=== PATIENT | female | born 1995 | race Caucasian/White ===

== ENCOUNTER 2016-03-23 00:43 | Inpatient (IN) | payer MEDICAID, OTHER, SELFPAY ==
[~2016-03-23] VITALS: Ht 162.6 cm; Wt 98.3 kg
[2016-03-23 01:31] LABS: MEAN CORPUSCULAR HEMOGLOBIN 28.3 pg (27.0-33.0); MEAN CORPUSCULAR HGB CONC 32.9 g/dl (32.0-36.5); MEAN CORPUSCULAR VOLUME 86.1 fl (80.0-96.0); RED CELL DISTRIBUTION WIDTH 13.4 % (11.5-14.5); WHITE BLOOD COUNT 12.9 K/mm3 (4.0-10.0)
[2016-03-23 01:41] LABS: AMPHETAMINES LEVEL URINE NEGATIVE (NEGATIVE); BENZODIAZEPINES URINE NEGATIVE (NEGATIVE); COCAINE METABOLITE URINE NEGATIVE (NEGATIVE); CONTROL LINE INT CTR LINE PRESENT; METHADONE URINE NEGATIVE (NEGATIVE); OPIATES URINE NEGATIVE (NEGATIVE); TRICYCLIC ANTIDEPRESS URINE NEGATIVE (NEGATIVE)
[2016-03-23 01:53] LABS: CONTROL LINE HCG INT CTR LINE PRESENT
[2016-03-23 02:04] LABS: ALBUMIN 3.3 GM/DL (3.2-5.2); ALBUMIN/GLOBULIN RATIO 0.97 (1.00-1.93); ALKALINE PHOSPHATASE 87 U/L (45-117); ALT/SGPT 16 U/L (12-78); ANION GAP 9 MEQ/L (8-16); AST/SGOT 12 U/L (15-37); BILIRUBIN,DIRECT 0.1 MG/DL (0.0-0.2); BILIRUBIN,TOTAL 0.3 MG/DL (0.2-1.0); BLOOD UREA NITROGEN 8 MG/DL (7-18); CALCIUM LEVEL 8.2 MG/DL (8.5-10.1); CARBON DIOXIDE LEVEL 24 MEQ/L (21-32); CHLORIDE LEVEL 110 MEQ/L (98-107); CREATININE FOR GFR 0.57 MG/DL (0.55-1.02); GLOMERULAR FILTRATION RATE > 60.0 (>60); GLUCOSE, FASTING 95 MG/DL (70-105); POTASSIUM SERUM 3.6 MEQ/L (3.5-5.1); SODIUM LEVEL 143 MEQ/L (136-145); TOTAL PROTEIN 6.7 GM/DL (6.4-8.2)
[2016-03-23] MEDS ORDERED: MAALOX 30 ML SUSP *UDC PO PRN (02:15)
[2016-03-23] MEDS ORDERED: traZODone 50 MG TAB PO PRN (02:15)
[2016-03-23] MEDS ORDERED: MOM 30ML SUSPENSION UDC PO PRN (02:15)
--- NOTE | 2016-03-23 02:44 | EDDOCDS ---
Physician Documentation [facility] Name: Paula Obando Age: 20 yrs Sex: Female : 1995 Arrival Date: 03/23/2016 Time: 00:43 Bed OBSERVATION Private MD: Disposition: 03/23/16 02:30 Hospitalization ordered by Alfredo Champion for Inpatient Admission. Preliminary diagnosis is Major depressive disorder, recurrent. - Bed requested for Admit. - Status is Inpatient Admission. slm - Condition is Stable. - Problem is an ongoing problem. - Symptoms have improved. Historical: - Allergies: No known drug Allergies; - Home Meds: 1. albuterol sulfate 90 mcg/actuation Inhl HFAA 2 puffs every 4-6 hours 2. omeprazole 20 mg Oral cpDR 1 cap once daily 3. trazodone Oral Unknown once daily 4. Advair Diskus 250-50 mcg/dose Inhl dsdv 1 puff 2 times per day - PMHx: GERD; Asthma; - PSHx: left eye surgery; - Social history: Smoking status: Patient uses tobacco products, heavy tobacco smoker. Patient uses street drugs, marijuana, No barriers to communication noted, The patient speaks fluent Uzbek, Speaks appropriately for age. - Family history: Not pertinent. - : The pt / caregiver states he / she is not on anticoagulants. Home medication list is obtained from the patient. - Exposure Risk Screening:: None identified. 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 4 in. (162.56 cm); Pain 9/10; 02:35 BP 132 / 89; Pulse 74; Resp 16; Temp 98.0(T); Pulse Ox 98% on R/A; slm 00:46 Body Mass Index 36.90 (97.52 kg, 162.56 cm) mas MDM: 00:50 [facility] Legal paperwork was scanned into [email or web address] and attached to record. cl 01:13 Consult PFS/PSA/Rapid Transit Operator ordered. cs11 01:13 Consult PFS/PSA/Rapid Transit Operator: Patient's case requires discussion with on-call 11 Psychiatrist ordered. 01:13 PSA/PFS to call Nursing Route Salesperson, to enter patient data on [place] Safe Act if patient cs11 involuntarily admitted or transferred for SI or HI ordered. 01:13 Confirm accurate psychiatric medication list and times of last dosage ordered. cs11 01:13 Detain Pt Until Medically/PFS Cleared ordered. cs11 01:15 Financial registration complete. hs2 01:15 Acetaminophen Level Ordered. EDMS 01:15 Basic Metabolic Profile Ordered. EDMS 01:15 Complete Blood Count Ordered. EDMS 01:15 Drug Eval Toxicology ED Only Ordered. EDMS 01:15 Ethyl Alcohol (ethanol) Ordered. EDMS 01:15 HCG,Serum Qualitative Ordered. EDMS 01:15 Liver Profile Ordered. EDMS 01:15 Salicylate Level Ordered. EDMS 01:15 Thyroid Stimulating Hormone Ordered. EDMS 01:18 [facility] Payment Agreement was scanned into [email or web address] and attached to record. hs2 02:01 Consult PFS/PSA/Rapid Transit Operator complete. cl 02:01 Consult PFS/PSA/Rapid Transit Operator: Patient's case requires discussion with on-call cl Psychiatrist complete. 02:01 PSA/PFS to call Nursing Route Salesperson, to enter patient data [place] Safe [place] if patient cl involuntarily admitted or transferred for SI or HI complete. 02:18 Admit to IMHU: ordered. EDMS 02:19 REGULAR DIET ordered. EDMS 02:29 [facility] Legal paperwork was scanned into [email or web address] and attached to record. cl 02:30 Acetaminophen Level Reviewed. cs11 02:30 Basic Metabolic Profile Reviewed. cs11 02:30 Complete Blood Count Reviewed. cs11 02:30 Liver Profile Reviewed. cs11 02:30 Salicylate Level Reviewed. cs11 02:30 Drug Eval Toxicology ED Only Reviewed. cs11 02:30 Ethyl Alcohol (ethanol) Reviewed. cs11 02:30 HCG,Serum Qualitative Reviewed. cs11 02:30 Thyroid Stimulating Hormone Reviewed. cs11 02:31 BED REQUEST+ADM ordered. EDMS Signatures: Dispatcher [employer] EDMS Michael Underwood, [place] PSA cl Mark Rodriguez, DO DO cs11 Chris Lozano,RN RN Freda Holm,TANK CAR INSPECTOR TANK CAR INSPECTOR slm Shirley Harris, Reg Reg hs2 The chart was reviewed and I authenticate all verbal orders and agree with the evaluation and treatment provided.Attachments: 01:18 [facility] Payment Agreement hs2 MTDD
--- NOTE | 2016-03-23 02:44 | EDDOCDS ---
Nurse's Notes [facility] Name: Paula Obando Age: 20 yrs Sex: Female : 1995 Arrival Date: 03/23/2016 Time: 00:43 Bed OBSERVATION Private MD: Diagnosis: Major depressive disorder, recurrent Presentation: 03/23 00:51 Presenting complaint: Patient states: Patient reports that she is here due to jmb attempting to take a handful of Flexeril to try to kill herself this evening. Patient reports that she has had a lot of family, financial, and work issues that make her desire to kill herself. Patient reports that she is originally from here but lived in [place] for some time and only returned for a boy. Mental Health Triage Level: Level 2: The patient displays active suicidal ideations. Adult Sepsis Screening: The patient does not have new or worsening altered mentation. Patient's respiratory rate is less than 22. Systolic blood pressure is greater than 100. Patient has a qSOFA score of 0- Negative Sepsis Screen. Suicide/Homicide risk assessment- The patient admits to and/or has been reported to be having suicidal ideations. Status: Patient is not a patient services manager or dependent. Transition of care: patient was not received from another setting of care. 00:51 Acuity: JONY Level 3 b 00:51 Method Of Arrival: [facility] Triage Assessment: 00:54 General: Appears in no apparent distress, Behavior is restless. Pain: Denies pain. Pt jmb Declines HIV testing. Neurological: Level of Consciousness is awake, alert, obeys commands, Oriented to person, place, time, Speech is normal, Facial symmetry appears normal, Facial symmetry: tongue is midline. Respiratory: Airway is patent Respiratory effort is even, unlabored, Respiratory pattern is regular, symmetrical. Derm: Skin is pink, warm & dry. Musculoskeletal: Range of motion intact in all extremities. 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 albuterol sulfate 90 mcg/actuation Inhl HFAA 2 puffs every 4-6 hours 2. omeprazole 20 mg Oral cpDR 1 cap once daily 3. trazodone Oral Unknown once daily 4. Advair Diskus 250-50 mcg/dose Inhl dsdv 1 puff 2 times per day - PMHx: GERD; Asthma; - PSHx: left eye surgery; - Social history: Smoking status: Patient uses tobacco products, heavy tobacco smoker. Patient uses street drugs, marijuana, No barriers to communication noted, The patient speaks fluent Malay, Speaks appropriately for age. - Family history: Not pertinent. - : The pt / caregiver states he / she is not on anticoagulants. Home medication list is obtained from the patient. - Exposure Risk Screening:: None identified. Screenin:45 Screening information is obtained from the patient. Fall risk: No risks identified. slm Assistance ADL's: requires no assistance with activities of daily living. Abuse/DV Screen: The patient / caregiver reports he/she is: not in a situation that causes fear, pain or injury. Nutritional screening: No deficits noted. Advance Directives: Currently, there is no health care proxy. There is no active DNR order. There is no living will. There is no Power of [employer]. Advance directive information has not previously been placed in an [facility] medical record. home support is inadequate. 02:13 Referral is made to Shivani OSBORNE. slm Assessment: 01:05 General: Appears in no apparent distress, comfortable, Behavior is appropriate for age, slm cooperative, pleasant. General: pt sitting on stretcher security observing . Pain: Denies pain. Neurological: Level of Consciousness is awake, alert, obeys commands. Respiratory: Airway is patent Respiratory effort is even, unlabored. 01:45 General: Appears in no apparent distress, comfortable, to be sleeping. Behavior is slm cooperative, quiet. General: resting on stretcher appears asleep security observing . Respiratory: Airway is patent Respiratory effort is even, unlabored. 02:32 General: Appears in no apparent distress, comfortable, to be sleeping. Behavior is slm appropriate for age, cooperative, quiet. General: security observing . Respiratory: Airway is patent Respiratory effort is even, unlabored. Mental Health Eval: 00:45 Referral Information: Evaluation referral is generated by a police agency: Anabel calderon on .. The patient was referred for evaluation because Pt reportedly sent messages to family members earlier tonight threatening suicide?. 00:59 Status: The patient is not a patient services manager or dependent. [facility] cl Behavioral Health: The patient is not an established patient of [facility] Behavioral Health. Subjective: The patients chief complaint is Pt reports multiple stressors including family, relationship and financial issues, currently lives alone, admits to sending texts/messages to family members last evening threatening suicide. Pt states "I was going to kill myself by taking a bunch of Flexeril". Pt denies prior suicide attempts, reports hx of cutting but none recently, denies HI/AH/VH/ETOH, reports frequent cannabis use. Pt is tearful, appears depressed, voicing hopelessness, is in no current outpt psych tx, appears to lack support. Pt continues to voice SI with plan for OD, cannot CFS at this time. . Delusions are denied. Patient's mood is depressed, Hallucinations are denied. Mental Health history: depression, self -mutilation, suicide ideation ideation Mental Health Admissions: None. Current Outpatient Mental Health Services: None. Current living environment is The patient currently lives alone. The patient is single. Patient presents to Emergency Department with the following symptoms within the past 2 weeks: decreased appetite, depressed mood, feelings of helplessness/hopelessness, poor concentration, relational problem, sleep disturbance - insomnia, suicidal ideation with plan for pills. Substance abuse: Patient uses marijuana Last use was 1 days ago. Mental status exam: Patients appearance is appropriate, Patient's behavior is cooperative, Speech is normal. Affect is restricted. Mood is dysthymic Hallucinations are denied. Appetite is erratic Memory is good. Energy level is tires easily. Content of thought is depressive. depressive Thought process is intact. Cognitive level is oriented to person, place, time and situation Patient's insight is fair. Judgement is fair. Rapport with interviewer is good. Suicidal Ideation present with a plan to kill self by pills. Homicidal ideation is not present. 02:07 Disposition: Medically cleared for disposition by Mark Rodriguez DO Psychiatric Consult cl is performed by phone with Dr Alfredo Champion. 02:15 [facility] Admission Criteria: The patient is experiencing suicidal ideation. The patient cl displays symptoms of severe psychiatric disorder resulting in disordered behavior and significant interference with his / her ability to maintain self care. Psychomotor Retardation. The patient requires continuous observation and/or control to protect self, others or property. The patient's care requires a multi-modal treatment plan under close supervision and coordination due to the complexity and severity of the patient's symptoms. Legal Status: Patient's legal status will be Emergency admission: [place] Safe Act: [place] Safe Act is applicable to this patient. The patient poses a risk to self or other and the Nursing Direct Customer Service Representative has been notified. He/She will enter the patient's data. DSM-V Differential Diagnosis: Unspecified Depressive Disorder (F32.9). Family Notification: Notification to family of patient status is not currently needed or appropriate. Narrative: Pt is currently estranged from her bio-father, bio-father's spouse is currently pt on [facility], case discussed with Ashley on [facility], Dr. Champion and pt as well due to possible conflict...pt denies any conflict as she has no contact with her father, Dr. Champion aware and is comfortable admitting pt to [facility] at this time... Awaiting: transfer to [facility]. 02:36 Insurance Pre-Certification: Vern...no after hours pre-cert available..to be cl completed during business hours... Vital Signs: 00:46 BP 130 / 61; Pulse 89; Resp 18; Temp 97.5(T); Pulse Ox 98% ; Weight 97.52 kg; Height 5 mas ft. 4 in. (162.56 cm); Pain 9/10; 02:35 BP 132 / 89; Pulse 74; Resp 16; Temp 98.0(T); Pulse Ox 98% on R/A; [facility] 00:46 Body Mass Index 36.90 (97.52 kg, 162.56 cm) [facility] Vitals: 00:47 Log In time N/A- police car arrival. [facility] ED Course: 00:44 Patient visited by Bernadette Baer. gjb 00:44 Patient moved to Waiting gj 00:45 Patient moved to [facility] gj 00:46 Freda Hutchinson LPN is Primary Nurse. [facility] 00:48 Pt greeted and oriented to ED. Patient advised of names of staff involved in care, [facility] location of call zapata, wait times and NPO status. Accompanied by Law Enforcement, [employer] on , Patient has correct armband on for positive identification. Placed in psych safe attire. Bed in low position. Call light in reach. Side rails up X 1. Security observing. Property removed, inventory done, secured in belongings bag- Placed in locker 2. Door closed. Noise minimized. Moved to private room. Verbal reassurance given. Warm blanket given. Pillow given. Psych Safety Check: Location: Psych Room. Visual Assessment: cooperative \\T\\ this time. 00:49 Mark Rodriguez DO is Attending Physician. cs11 00:49 Patient visited by Mark Rodriguez DO. cs11 00:50 [facility] Legal paperwork was scanned into [employer] and attached to record. cl 00:52 Triage Initiated jmb 01:00 Patient visited by Mitesh Jackson. mas 01:06 Patient visited by Freda Hutchinson LPN. slm 01:17 Patient moved to OBSERVATION cs11 01:18 [facility] Payment Agreement was scanned into [employer] and attached to record. hs2 01:24 Patient visited by Mitesh Jackson. mas 01:25 Patient name changed from Paula\\S\\L\\S\\Gokey\\S\\ to Paula\\S\\Arden\\S\\Gokey. EDMS 01:30 Patient visited by Mitesh Jackson. mas 01:46 Patient visited by Freda Hutchinson LPN. slm 02:01 Patient visited by Freda Hutchinson LPN. slm 02:06 No IV's were initiated during this patient's visit. No procedures done that require slm assistance. Labs drawn. (by ED staff). Sent per order to lab. Urine collected. Urine specimen sent to lab. 02:13 The patient / caregiver is instructed regarding the plan of care and ED course. slm 02:15 Patient visited by Mitesh Jackson. mas 02:29 [facility] Legal paperwork was scanned into [employer] and attached to record. cl 02:30 Alfredo Champion is Hospitalizing Provider. cs11 02:42 Patient visited by Freda Hutchinson LPN. slm Attachments: 00:50 [facility] Legal paperwork cl 02:29 [facility] Legal paperwork cl Order Results: Lab Order: Acetaminophen Level; SPEC'M 03/23/16 01:18 Test: ACETAMINOPHEN LEVEL; Value: < 2.0; Range: 10.0-30.0; Abnormal: Below low normal; Units: UG/ML; Status: F Lab Order: Basic Metabolic Profile; SPEC'M 03/23/16 01:18 Test: GLUCOSE, FASTING; Value: 95; Range: 70-105; Units: MG/DL; Status: F Test: BLOOD UREA NITROGEN; Value: 8; Range: 7-18; Units: MG/DL; Status: F Test: CREATININE FOR GFR; Value: 0.57; Range: 0.55-1.02; Units: MG/DL; Status: F Test: SODIUM LEVEL; Range: 136-145; Units: MEQ/L; Status: I Test: POTASSIUM SERUM; Range: 3.5-5.1; Units: MEQ/L; Status: I Test: CHLORIDE LEVEL; Range: 98-107; Units: MEQ/L; Status: I Test: CARBON DIOXIDE LEVEL; Range: 21-32; Units: MEQ/L; Status: I Test: ANION GAP; Range: 8-16; Units: MEQ/L; Status: I Test: CALCIUM LEVEL; Range: 8.5-10.1; Units: MG/DL; Status: I Test: GLOMERULAR FILTRATION RATE; Value: > 60.0; Range: >60; Status: F Test: SODIUM LEVEL; Value: 143; Range: 136-145; Units: MEQ/L; Status: F Test: POTASSIUM SERUM; Value: 3.6; Range: 3.5-5.1; Units: MEQ/L; Status: F Test: CHLORIDE LEVEL; Value: 110; Range: 98-107; Abnormal: Above high normal; Units: MEQ/L; Status: F Test: CARBON DIOXIDE LEVEL; Value: 24; Range: 21-32; Units: MEQ/L; Status: F Test: ANION GAP; Value: 9; Range: 8-16; Units: MEQ/L; Status: F Test: CALCIUM LEVEL; Value: 8.2; Range: 8.5-10.1; Abnormal: Below low normal; Units: MG/DL; Status: F Test Note: ; Units are mL/min/1.73 m2 Chronic Kidney Disease Staging per NKF: Stage I & II GFR >=60 Normal to Mildly Decreased Stage III GFR 30-59 Moderately Decreased Stage IV GFR 15-29 Severely Decreased Stage V GFR <15 Very Little GFR Left ESRD GFR <15 on FUEL CELL BUILDER Lab Order: Complete Blood Count; SPEC'M 03/23/16 01:18 Test: WHITE BLOOD COUNT; Value: 12.9; Range: 4.0-10.0; Abnormal: Above high normal; Units: K/mm3; Status: F Test: RED BLOOD COUNT; Value: 4.66; Range: 4.00-5.40; Units: M/mm3; Status: F Test: HEMOGLOBIN; Value: 13.2; Range: 12.0-16.0; Units: g/dl; Status: F Test: HEMATOCRIT; Value: 40.2; Range: 36.0-47.0; Units: %; Status: F Test: MEAN CORPUSCULAR VOLUME; Value: 86.1; Range: 80.0-96.0; Units: fl; Status: F Test: MEAN CORPUSCULAR HEMOGLOBIN; Value: 28.3; Range: 27.0-33.0; Units: pg; Status: F Test: MEAN CORPUSCULAR HGB CONC; Value: 32.9; Range: 32.0-36.5; Units: g/dl; Status: F Test: RED CELL DISTRIBUTION WIDTH; Value: 13.4; Range: 11.5-14.5; Units: %; Status: F Test: PLATELET COUNT, AUTOMATED; Value: 265; Range: 150-450; Units: k/mm3; Status: F Lab Order: Drug Eval Toxicology ED Only; SPEC'M 03/23/16: Test: AMPHETAMINES LEVEL URINE; Value: NEGATIVE; Range: NEGATIVE; Status: F Test: BARBITURATES URINE; Value: NEGATIVE; Range: NEGATIVE; Status: F Test: BENZODIAZEPINES URINE; Value: NEGATIVE; Range: NEGATIVE; Status: F Test: CANNABINOIDS URINE; Value: NEGATIVE; Range: NEGATIVE; Status: F Test: COCAINE METABOLITE URINE; Value: NEGATIVE; Range: NEGATIVE; Status: F Test: METHADONE URINE; Value: NEGATIVE; Range: NEGATIVE; Status: F Test: OPIATES URINE; Value: NEGATIVE; Range: NEGATIVE; Status: F Test: TRICYCLIC ANTIDEPRESS URINE; Value: NEGATIVE; Range: NEGATIVE; Status: F Test Note: ; ALL PRESUMPTIVE POSITIVE FINDINGS ARE UNCONFIRMED NORMAL VALUES THRESHOLD IN NG/ML AMPHETAMINES 1000 METHAMPHETAMINES 1000 BARBITURATES 300 BENZODIAZEPINES 300 CANNABINOIDS (THC) 50 COCAINE METABOLITE 300 METHADONE 300 OPIATES 300 PHENCYCLIDINE 25 TRICYCLIC ANTIDEPRESSANTS 1000 RESULTS ARE FOR MEDICAL PURPOSES ONLY. ALL URINE SPECIMENS WILL BE SAVED FOR 3 DAYS. IF CONFIRMATION OF A PRESUMPTIVE POSTIVE SCREEN RESULT IS DESIRED, CALL CHEMISTRY ([phone]) AND REQUEST URINE TO BE SENT TO REFERENCE LAB. FOR A LIST OF CLOSELY RELATED COMPOUNDS PLEASE CALL THE LAB. Lab Order: Ethyl Alcohol (ethanol); SPEC'03/23/16 Test: ETHYL ALCOHOL (ETHANOL); Value: < 0.003; Range: 0.000-0.010; Units: %; Status: F Lab Order: HCG,Serum Qualitative; SPEC03/23/16 Test: HCG, SERUM QUALITATIVE; Value: NEGATIVE; Range: NEGATIVE; Status: F Lab Order: Liver Profile; SPEC03/23/16: Test: AST/SGOT; Value: 12; Range: 15-37; Abnormal: Below low normal; Units: U/L; Status: F Test: ALT/SGPT; Value: 16; Range: 12-78; Units: U/L; Status: F Test: ALKALINE PHOSPHATASE; Value: 87; Range: 45-117; Units: U/L; Status: F Test: BILIRUBIN,TOTAL; Value: 0.3; Range: 0.2-1.0; Units: MG/DL; Status: F Test: BILIRUBIN,DIRECT; Value: 0.1; Range: 0.0-0.2; Units: MG/DL; Status: F Test: TOTAL PROTEIN; Value: 6.7; Range: 6.4-8.2; Units: GM/DL; Status: F Test: ALBUMIN; Value: 3.3; Range: 3.2-5.2; Units: GM/DL; Status: F Test: ALBUMIN/GLOBULIN RATIO; Value: 0.97; Range: 1.00-1.93; Abnormal: Below low normal; Status: F Lab Order: Salicylate Level; SPEC'03/23/16 Test: SALICYLATE LEVEL; Value: 1.8; Range: 5.0-30.0; Abnormal: Below low normal; Units: MG/DL; Status: F Lab Order: Thyroid Stimulating Hormone; SPEC'03/23/16: Test: THYROID STIMULATING HORMONE; Value: 2.480; Range: 0.358-3.740; Units: uIU/ML; Status: F Outcome: 02:14 Discharge Assessment: patient administered narcotics - no. No special radiology studies sl were completed. 02:30 Decision to Hospitalize by Provider. cs11 02:35 The following High Risk Discharge criteria are identified: None. Admitted to [facility] accompanied by tech, via wheelchair, with chart. Condition: stable. 02:43 Patient left the ED. [facility] Signatures: Dispatcher [employer] EDMS Michael Underwood, Mitesh Benítez Craig, DO cs11 Chris Lozano,RN RN Freda Holm LPN PLANT PROTECTION GUARD Bernadette Song Hillary, Reg Reg hs2 MTDD
[2016-03-23] MEDS ORDERED: ADV250INH INH (02:59)
[2016-03-23] MEDS ORDERED: TRAZ50TA4 PO (02:59)
[2016-03-23] MEDS ORDERED: OMEP40CA2 PO (02:59)
[2016-03-23] MEDS ORDERED: ALBU17IN INH (02:59)
[2016-03-23] MEDS: ACETAMINOPHEN TAB 650MG DOSE (2X325MG) PO PRN ×2 (03:10→21:48)
[2016-03-23 03:50] VITALS: BP 146/84
[2016-03-23] MEDS: FLUoxetine 10 MG CAP PO SCH (13:34)
[2016-03-23 18:00] VITALS: BP 127/60
[2016-03-23] MEDS ORDERED: ALBUTEROL 90 MCG/ACT 8GM HFA INHALER INH PRN (20:45)
[2016-03-23] MEDS: hydrOXYzine 25 MG TAB PO SCH (21:47)
[2016-03-23] MEDS: ADVAIR DISKUS 250/50 INH PWD INH SCH (22:12)
[2016-03-23] MEDS: FAMOTIDINE 20 MG TAB PO SCH (22:12)
[2016-03-24 06:00] VITALS: BP 136/76
[2016-03-24] MEDS: OMEPRAZOLE 20 MG CAP PO SCH (08:22)
[2016-03-24] MEDS: ADVAIR DISKUS 250/50 INH PWD INH SCH ×2 (08:22→20:32)
[2016-03-24] MEDS: FLUoxetine 10 MG CAP PO SCH (08:22)
[2016-03-24] MEDS: ACETAMINOPHEN TAB 650MG DOSE (2X325MG) PO PRN ×2 (08:23→14:39)
[2016-03-24 18:00] VITALS: BP 117/57
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
[2016-03-24] MEDS: hydrOXYzine 25 MG TAB PO SCH (20:32)
[2016-03-24] MEDS: FAMOTIDINE 20 MG TAB PO SCH (20:32)
--- NOTE | 2016-03-25 03:44 | EDDOCDS ---
Nurse's Notes [facility] Name: Paula Obando Age: 20 yrs Sex: Female : 1995 Arrival Date: 03/23/2016 Time: 00:43 Bed OBSERVATION Private MD: Diagnosis: Major depressive disorder, recurrent Presentation: 03/23 00:51 Presenting complaint: Patient states: Patient reports that she is here due to jmb attempting to take a handful of Flexeril to try to kill herself this evening. Patient reports that she has had a lot of family, financial, and work issues that make her desire to kill herself. Patient reports that she is originally from here but lived in [place] for some time and only returned for a boy. Mental Health Triage Level: Level 2: The patient displays active suicidal ideations. Adult Sepsis Screening: The patient does not have new or worsening altered mentation. Patient's respiratory rate is less than 22. Systolic blood pressure is greater than 100. Patient has a qSOFA score of 0- Negative Sepsis Screen. Suicide/Homicide risk assessment- The patient admits to and/or has been reported to be having suicidal ideations. Status: Patient is not a guest services attendant or dependent. Transition of care: patient was not received from another setting of care. 00:51 Acuity: JONY Level 3 b 00:51 Method Of Arrival: Police Car [facility] Triage Assessment: 00:54 General: Appears in no apparent distress, Behavior is restless. Pain: Denies pain. Pt jmb Declines HIV testing. Neurological: Level of Consciousness is awake, alert, obeys commands, Oriented to person, place, time, Speech is normal, Facial symmetry appears normal, Facial symmetry: tongue is midline. Respiratory: Airway is patent Respiratory effort is even, unlabored, Respiratory pattern is regular, symmetrical. Derm: Skin is pink, warm & dry. Musculoskeletal: Range of motion intact in all extremities. 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 albuterol sulfate 90 mcg/actuation Inhl HFAA 2 puffs every 4-6 hours 2. omeprazole 20 mg Oral cpDR 1 cap once daily 3. trazodone Oral Unknown once daily 4. Advair Diskus 250-50 mcg/dose Inhl dsdv 1 puff 2 times per day - PMHx: GERD; Asthma; - PSHx: left eye surgery; - Social history: Smoking status: Patient uses tobacco products, heavy tobacco smoker. Patient uses street drugs, marijuana, No barriers to communication noted, The patient speaks fluent Czech, Speaks appropriately for age. - Family history: Not pertinent. - : The pt / caregiver states he / she is not on anticoagulants. Home medication list is obtained from the patient. - Exposure Risk Screening:: None identified. Screenin:45 Screening information is obtained from the patient. Fall risk: No risks identified. slm Assistance ADL's: requires no assistance with activities of daily living. Abuse/DV Screen: The patient / caregiver reports he/she is: not in a situation that causes fear, pain or injury. Nutritional screening: No deficits noted. Advance Directives: Currently, there is no health care proxy. There is no active DNR order. There is no living will. There is no Power of Grades 1 Thru 6 Home Teacher. Advance directive information has not previously been placed in an [facility] medical record. home support is inadequate. 02:13 Referral is made to Shivani OSBORNE. slm Assessment: 01:05 General: Appears in no apparent distress, comfortable, Behavior is appropriate for age, slm cooperative, pleasant. General: pt sitting on stretcher security observing . Pain: Denies pain. Neurological: Level of Consciousness is awake, alert, obeys commands. Respiratory: Airway is patent Respiratory effort is even, unlabored. 01:45 General: Appears in no apparent distress, comfortable, to be sleeping. Behavior is slm cooperative, quiet. General: resting on stretcher appears asleep security observing . Respiratory: Airway is patent Respiratory effort is even, unlabored. 02:32 General: Appears in no apparent distress, comfortable, to be sleeping. Behavior is slm appropriate for age, cooperative, quiet. General: security observing . Respiratory: Airway is patent Respiratory effort is even, unlabored. Mental Health Eval: 00:45 Referral Information: Evaluation referral is generated by a police agency: Anabel calderon on .. The patient was referred for evaluation because Pt reportedly sent messages to family members earlier tonight threatening suicide?. 00:59 Status: The patient is not a guest services attendant or dependent. [facility] cl Behavioral Health: The patient is not an established patient of [facility] Behavioral Health. Subjective: The patients chief complaint is Pt reports multiple stressors including family, relationship and financial issues, currently lives alone, admits to sending texts/messages to family members last evening threatening suicide. Pt states "I was going to kill myself by taking a bunch of Flexeril". Pt denies prior suicide attempts, reports hx of cutting but none recently, denies HI/AH/VH/ETOH, reports frequent cannabis use. Pt is tearful, appears depressed, voicing hopelessness, is in no current outpt psych tx, appears to lack support. Pt continues to voice SI with plan for OD, cannot CFS at this time. . Delusions are denied. Patient's mood is depressed, Hallucinations are denied. Mental Health history: depression, self -mutilation, suicide ideation ideation Mental Health Admissions: None. Current Outpatient Mental Health Services: None. Current living environment is The patient currently lives alone. The patient is single. Patient presents to Emergency Department with the following symptoms within the past 2 weeks: decreased appetite, depressed mood, feelings of helplessness/hopelessness, poor concentration, relational problem, sleep disturbance - insomnia, suicidal ideation with plan for pills. Substance abuse: Patient uses marijuana Last use was 1 days ago. Mental status exam: Patients appearance is appropriate, Patient's behavior is cooperative, Speech is normal. Affect is restricted. Mood is dysthymic Hallucinations are denied. Appetite is erratic Memory is good. Energy level is tires easily. Content of thought is depressive. depressive Thought process is intact. Cognitive level is oriented to person, place, time and situation Patient's insight is fair. Judgement is fair. Rapport with interviewer is good. Suicidal Ideation present with a plan to kill self by pills. Homicidal ideation is not present. 02:07 Disposition: Medically cleared for disposition by Mark Rodriguez DO Psychiatric Consult cl is performed by phone with Dr Alfredo Champion. 02:15 [facility] Admission Criteria: The patient is experiencing suicidal ideation. The patient cl displays symptoms of severe psychiatric disorder resulting in disordered behavior and significant interference with his / her ability to maintain self care. Psychomotor Retardation. The patient requires continuous observation and/or control to protect self, others or property. The patient's care requires a multi-modal treatment plan under close supervision and coordination due to the complexity and severity of the patient's symptoms. Legal Status: Patient's legal status will be Emergency admission: [place] Safe Act: [place] Safe Act is applicable to this patient. The patient poses a risk to self or other and the Nursing Digital Campaign Specialist has been notified. He/She will enter the patient's data. DSM-V Differential Diagnosis: Unspecified Depressive Disorder (F32.9). Family Notification: Notification to family of patient status is not currently needed or appropriate. Narrative: Pt is currently estranged from her bio-father, bio-father's spouse is currently pt on [facility], case discussed with Ashley on [facility], Dr. Champion and pt as well due to possible conflict...pt denies any conflict as she has no contact with her father, Dr. Champion aware and is comfortable admitting pt to [facility] at this time... Awaiting: transfer to [facility]. 02:36 Insurance Pre-Certification: [employer]...no after hours pre-cert available..to be cl completed during business hours... 03/24 10:42 Insurance Pre-Certification: approved by: Екатерина at [employer] approving inpatient admission kh9 until 03/25/16. Will call Bree Callejas tomorrow 03/25/16 to follow up. Auth #[id number]. Vital Signs: 03/23 00:46 BP 130 / 61; Pulse 89; Resp 18; Temp 97.5(T); Pulse Ox 98% ; Weight 97.52 kg; Height 5 mas ft. 4 in. (162.56 cm); Pain 9/10; 02:35 BP 132 / 89; Pulse 74; Resp 16; Temp 98.0(T); Pulse Ox 98% on R/A; [facility] 00:46 Body Mass Index 36.90 (97.52 kg, 162.56 cm) [facility] Vitals: 00:47 Log In time N/A- police car arrival. [facility] ED Course: 00:44 Patient visited by Bernadette Baer. gjb 00:44 Patient moved to Waiting gjb 00:45 Patient moved to [facility] gjb 00:46 Freda Hutchinson LPN is Primary Nurse. [facility] 00:48 Pt greeted and oriented to ED. Patient advised of names of staff involved in care, [facility] location of call zapata, wait times and NPO status. Accompanied by Law Enforcement, [employer] on 9.41, Patient has correct armband on for positive identification. Placed in psych safe attire. Bed in low position. Call light in reach. Side rails up X 1. Security observing. Property removed, inventory done, secured in belongings bag- Placed in locker 2. Door closed. Noise minimized. Moved to private room. Verbal reassurance given. Warm blanket given. Pillow given. Psych Safety Check: Location: Psych Room. Visual Assessment: cooperative \\T\\ this time. 00:49 Mark Rodriguez DO is Attending Physician. cs11 00:49 Patient visited by Mark Rodriguez DO. cs11 00:50 [facility] Legal paperwork was scanned into [employer] and attached to record. cl 00:52 Triage Initiated jmb 01:00 Patient visited by Mitesh Jackson. mas 01:06 Patient visited by Freda Hutchinson LPN. slm 01:17 Patient moved to OBSERVATION cs11 01:18 [facility] Payment Agreement was scanned into [employer] and attached to record. hs2 01:24 Patient visited by Mitesh Jackson. mas 01:25 Patient name changed from Paula\\S\\L\\S\\Gokey\\S\\ to Paula\\S\\Arden\\S\\Gokey. EDMS 01:30 Patient visited by Mitesh Jackson. mas 01:46 Patient visited by Freda Hutchinson LPN. slm 02:01 Patient visited by Freda Hutchinson LPN. slm 02:06 No IV's were initiated during this patient's visit. No procedures done that require slm assistance. Labs drawn. (by ED staff). Sent per order to lab. Urine collected. Urine specimen sent to lab. 02:13 The patient / caregiver is instructed regarding the plan of care and ED course. slm 02:15 Patient visited by Mitesh Jackson. mas 02:29 [facility] Legal paperwork was scanned into [employer] and attached to record. cl 02:30 Alfredo Champion is Hospitalizing Provider. cs11 02:42 Patient visited by Freda Hutchinson LPN. slm 09:25 T-Sheet-- Draft Copy was scanned into [employer] and attached to record. seh Attachments: 00:50 [facility] Legal paperwork cl 02:29 [facility] Legal paperwork cl Order Results: Lab Order: Acetaminophen Level; SPEC'M 03/23/16 01:18 Test: ACETAMINOPHEN LEVEL; Value: < 2.0; Range: 10.0-30.0; Abnormal: Below low normal; Units: UG/ML; Status: F Lab Order: Basic Metabolic Profile; SPEC'M 03/23/16 01:18 Test: GLUCOSE, FASTING; Value: 95; Range: 70-105; Units: MG/DL; Status: F Test: BLOOD UREA NITROGEN; Value: 8; Range: 7-18; Units: MG/DL; Status: F Test: CREATININE FOR GFR; Value: 0.57; Range: 0.55-1.02; Units: MG/DL; Status: F Test: SODIUM LEVEL; Range: 136-145; Units: MEQ/L; Status: I Test: POTASSIUM SERUM; Range: 3.5-5.1; Units: MEQ/L; Status: I Test: CHLORIDE LEVEL; Range: 98-107; Units: MEQ/L; Status: I Test: CARBON DIOXIDE LEVEL; Range: 21-32; Units: MEQ/L; Status: I Test: ANION GAP; Range: 8-16; Units: MEQ/L; Status: I Test: CALCIUM LEVEL; Range: 8.5-10.1; Units: MG/DL; Status: I Test: GLOMERULAR FILTRATION RATE; Value: > 60.0; Range: >60; Status: F Test: SODIUM LEVEL; Value: 143; Range: 136-145; Units: MEQ/L; Status: F Test: POTASSIUM SERUM; Value: 3.6; Range: 3.5-5.1; Units: MEQ/L; Status: F Test: CHLORIDE LEVEL; Value: 110; Range: 98-107; Abnormal: Above high normal; Units: MEQ/L; Status: F Test: CARBON DIOXIDE LEVEL; Value: 24; Range: 21-32; Units: MEQ/L; Status: F Test: ANION GAP; Value: 9; Range: 8-16; Units: MEQ/L; Status: F Test: CALCIUM LEVEL; Value: 8.2; Range: 8.5-10.1; Abnormal: Below low normal; Units: MG/DL; Status: F Test Note: ; Units are mL/min/1.73 m2 Chronic Kidney Disease Staging per NKF: Stage I & II GFR >=60 Normal to Mildly Decreased Stage III GFR 30-59 Moderately Decreased Stage IV GFR 15-29 Severely Decreased Stage V GFR <15 Very Little GFR Left ESRD GFR <15 on [employer] Lab Order: Complete Blood Count; SPEC'M 03/23/16 01:18 Test: WHITE BLOOD COUNT; Value: 12.9; Range: 4.0-10.0; Abnormal: Above high normal; Units: K/mm3; Status: F Test: RED BLOOD COUNT; Value: 4.66; Range: 4.00-5.40; Units: M/mm3; Status: F Test: HEMOGLOBIN; Value: 13.2; Range: 12.0-16.0; Units: g/dl; Status: F Test: HEMATOCRIT; Value: 40.2; Range: 36.0-47.0; Units: %; Status: F Test: MEAN CORPUSCULAR VOLUME; Value: 86.1; Range: 80.0-96.0; Units: fl; Status: F Test: MEAN CORPUSCULAR HEMOGLOBIN; Value: 28.3; Range: 27.0-33.0; Units: pg; Status: F Test: MEAN CORPUSCULAR HGB CONC; Value: 32.9; Range: 32.0-36.5; Units: g/dl; Status: F Test: RED CELL DISTRIBUTION WIDTH; Value: 13.4; Range: 11.5-14.5; Units: %; Status: F Test: PLATELET COUNT, AUTOMATED; Value: 265; Range: 150-450; Units: k/mm3; Status: F Lab Order: Drug Eval Toxicology ED Only; SPEC'M 03/23/16 01:17 Test: AMPHETAMINES LEVEL URINE; Value: NEGATIVE; Range: NEGATIVE; Status: F Test: BARBITURATES URINE; Value: NEGATIVE; Range: NEGATIVE; Status: F Test: BENZODIAZEPINES URINE; Value: NEGATIVE; Range: NEGATIVE; Status: F Test: CANNABINOIDS URINE; Value: NEGATIVE; Range: NEGATIVE; Status: F Test: COCAINE METABOLITE URINE; Value: NEGATIVE; Range: NEGATIVE; Status: F Test: METHADONE URINE; Value: NEGATIVE; Range: NEGATIVE; Status: F Test: OPIATES URINE; Value: NEGATIVE; Range: NEGATIVE; Status: F Test: TRICYCLIC ANTIDEPRESS URINE; Value: NEGATIVE; Range: NEGATIVE; Status: F Test Note: ; ALL PRESUMPTIVE POSITIVE FINDINGS ARE UNCONFIRMED NORMAL VALUES THRESHOLD IN NG/ML AMPHETAMINES 1000 METHAMPHETAMINES 1000 BARBITURATES 300 BENZODIAZEPINES 300 CANNABINOIDS (THC) 50 COCAINE METABOLITE 300 METHADONE 300 OPIATES 300 PHENCYCLIDINE 25 TRICYCLIC ANTIDEPRESSANTS 1000 RESULTS ARE FOR MEDICAL PURPOSES ONLY. ALL URINE SPECIMENS WILL BE SAVED FOR 3 DAYS. IF CONFIRMATION OF A PRESUMPTIVE POSTIVE SCREEN RESULT IS DESIRED, CALL CHEMISTRY ([phone]) AND REQUEST URINE TO BE SENT TO REFERENCE LAB. FOR A LIST OF CLOSELY RELATED COMPOUNDS PLEASE CALL THE LAB. Lab Order: Ethyl Alcohol (ethanol); SPEC'M 03/23/16:18 Test: ETHYL ALCOHOL (ETHANOL); Value: < 0.003; Range: 0.000-0.010; Units: %; Status: F Lab Order: HCG,Serum Qualitative; SPEC'M 03/23/16:18 Test: HCG, SERUM QUALITATIVE; Value: NEGATIVE; Range: NEGATIVE; Status: F Lab Order: Liver Profile; SPEC' 03/23/16:18 Test: AST/SGOT; Value: 12; Range: 15-37; Abnormal: Below low normal; Units: U/L; Status: F Test: ALT/SGPT; Value: 16; Range: 12-78; Units: U/L; Status: F Test: ALKALINE PHOSPHATASE; Value: 87; Range: 45-117; Units: U/L; Status: F Test: BILIRUBIN,TOTAL; Value: 0.3; Range: 0.2-1.0; Units: MG/DL; Status: F Test: BILIRUBIN,DIRECT; Value: 0.1; Range: 0.0-0.2; Units: MG/DL; Status: F Test: TOTAL PROTEIN; Value: 6.7; Range: 6.4-8.2; Units: GM/DL; Status: F Test: ALBUMIN; Value: 3.3; Range: 3.2-5.2; Units: GM/DL; Status: F Test: ALBUMIN/GLOBULIN RATIO; Value: 0.97; Range: 1.00-1.93; Abnormal: Below low normal; Status: F Lab Order: Salicylate Level; SPEC' 03/23/16:18 Test: SALICYLATE LEVEL; Value: 1.8; Range: 5.0-30.0; Abnormal: Below low normal; Units: MG/DL; Status: F Lab Order: Thyroid Stimulating Hormone; SPEC'M 03/23/16 01:18 Test: THYROID STIMULATING HORMONE; Value: 2.480; Range: 0.358-3.740; Units: uIU/ML; Status: F Outcome: 02:14 Discharge Assessment: patient administered narcotics - no. No special radiology studies [facility] were completed. 02:30 Decision to Hospitalize by Provider. cs11 02:35 The following High Risk Discharge criteria are identified: None. Admitted to [facility] accompanied by tech, via wheelchair, with chart. Condition: stable. 02:43 Patient left the ED. [facility] Signatures: Dispatcher [employer] EDMS Michael Underwood, [place] aJckson, Mark Arita, DO DO cs11 Chris Lozano,RN RN Freda Holm,SPRAY DRIER BRIGHT Bernadette Song katie formerly [facility] Shirley Harris, Reg Reg 2 Zena Stout Chart Complete [facility]
--- NOTE | 2016-03-25 03:44 | EDDOCDS ---
Physician Documentation [facility] Name: Paula Obando Age: 20 yrs Sex: Female : 1995 Arrival Date: 03/23/2016 Time: 00:43 Bed OBSERVATION Private MD: Disposition: 03/23/16 02:30 Hospitalization ordered by Alfredo Champion for Inpatient Admission. Preliminary diagnosis is Major depressive disorder, recurrent. - Bed requested for Admit. - Status is Inpatient Admission. slm - Condition is Stable. - Problem is an ongoing problem. - Symptoms have improved. Historical: - Allergies: No known drug Allergies; - Home Meds: 1. albuterol sulfate 90 mcg/actuation Inhl HFAA 2 puffs every 4-6 hours 2. omeprazole 20 mg Oral cpDR 1 cap once daily 3. trazodone Oral Unknown once daily 4. Advair Diskus 250-50 mcg/dose Inhl dsdv 1 puff 2 times per day - PMHx: GERD; Asthma; - PSHx: left eye surgery; - Social history: Smoking status: Patient uses tobacco products, heavy tobacco smoker. Patient uses street drugs, marijuana, No barriers to communication noted, The patient speaks fluent [place], Speaks appropriately for age. - Family history: Not pertinent. - : The pt / caregiver states he / she is not on anticoagulants. Home medication list is obtained from the patient. - Exposure Risk Screening:: None identified. 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 4 in. (162.56 cm); Pain 9/10; 02:35 BP 132 / 89; Pulse 74; Resp 16; Temp 98.0(T); Pulse Ox 98% on R/A; slm 00:46 Body Mass Index 36.90 (97.52 kg, 162.56 cm) mas MDM: 00:50 MHE Legal paperwork was scanned into [employer] and attached to record. cl 01:13 Consult PFS/PSA/Post Office Markup Clerk ordered. cs11 01:13 Consult PFS/PSA/Post Office Markup Clerk: Patient's case requires discussion with on-call 11 Psychiatrist ordered. 01:13 PSA/PFS to call Nursing Plant Operations Engineer, to enter patient data on [place] Safe [place] if patient cs11 involuntarily admitted or transferred for SI or HI ordered. 01:13 Confirm accurate psychiatric medication list and times of last dosage ordered. cs11 01:13 Detain Pt Until Medically/PFS Cleared ordered. cs11 01:15 Financial registration complete. hs2 01:15 Acetaminophen Level Ordered. EDMS 01:15 Basic Metabolic Profile Ordered. EDMS 01:15 Complete Blood Count Ordered. EDMS 01:15 Drug Eval Toxicology ED Only Ordered. EDMS 01:15 Ethyl Alcohol (ethanol) Ordered. EDMS 01:15 HCG,Serum Qualitative Ordered. EDMS 01:15 Liver Profile Ordered. EDMS 01:15 Salicylate Level Ordered. EDMS 01:15 Thyroid Stimulating Hormone Ordered. EDMS 01:18 [facility] Payment Agreement was scanned into [employer] and attached to record. hs2 02:01 Consult PFS/PSA/Post Office Markup Clerk complete. cl 02:01 Consult PFS/PSA/Post Office Markup Clerk: Patient's case requires discussion with on-call cl Psychiatrist complete. 02:01 PSA/PFS to call Nursing Plant Operations Engineer, to enter patient data [place] if patient cl involuntarily admitted or transferred for SI or HI complete. 02:18 Admit to IM: ordered. EDMS 02:19 REGULAR DIET ordered. EDMS 02:29 MHE Legal paperwork was scanned into [employer] and attached to record. cl 02:30 Acetaminophen Level Reviewed. cs11 02:30 Basic Metabolic Profile Reviewed. cs11 02:30 Complete Blood Count Reviewed. cs11 02:30 Liver Profile Reviewed. cs11 02:30 Salicylate Level Reviewed. cs11 02:30 Drug Eval Toxicology ED Only Reviewed. cs11 02:30 Ethyl Alcohol (ethanol) Reviewed. cs11 02:30 HCG,Serum Qualitative Reviewed. cs11 02:30 Thyroid Stimulating Hormone Reviewed. cs11 02:31 BED REQUEST+ADM ordered. EDMS 09:25 T-Sheet-- Draft Copy was scanned into [employer] and attached to record. [facility] Signatures: Dispatcher [employer] EDMS Michael Underwood, PSA PSA cl Mark Rodriguez, DO DO cs11 Chris Lozano,RN RN Freda Holm LPN BREAD STACKER slShirley Robert, Reg Reg hs2 Zena Stout The chart was reviewed and I authenticate all verbal orders and agree with the evaluation and treatment provided.Attachments: 01:18 [facility] Payment Agreement hs2 09:25 T-Sheet-- Draft Copy [facility] Chart Complete MTDD
--- NOTE | 2016-03-25 03:44 | EDDOCDS ---
Physician Documentation [facility] Name: Paula Obando Age: 20 yrs Sex: Female : 1995 Arrival Date: 03/23/2016 Time: 00:43 Bed OBSERVATION Private MD: Disposition: 03/23/16 02:30 Hospitalization ordered by Alfredo Champion for Inpatient Admission. Preliminary diagnosis is Major depressive disorder, recurrent. - Bed requested for Admit. - Status is Inpatient Admission. slm - Condition is Stable. - Problem is an ongoing problem. - Symptoms have improved. Historical: - Allergies: No known drug Allergies; - Home Meds: 1. albuterol sulfate 90 mcg/actuation Inhl HFAA 2 puffs every 4-6 hours 2. omeprazole 20 mg Oral cpDR 1 cap once daily 3. trazodone Oral Unknown once daily 4. Advair Diskus 250-50 mcg/dose Inhl dsdv 1 puff 2 times per day - PMHx: GERD; Asthma; - PSHx: left eye surgery; - Social history: Smoking status: Patient uses tobacco products, heavy tobacco smoker. Patient uses street drugs, marijuana, No barriers to communication noted, The patient speaks fluent [place], Speaks appropriately for age. - Family history: Not pertinent. - : The pt / caregiver states he / she is not on anticoagulants. Home medication list is obtained from the patient. - Exposure Risk Screening:: None identified. 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 4 in. (162.56 cm); Pain 9/10; 02:35 BP 132 / 89; Pulse 74; Resp 16; Temp 98.0(T); Pulse Ox 98% on R/A; slm 00:46 Body Mass Index 36.90 (97.52 kg, 162.56 cm) mas MDM: 00:50 MHE Legal paperwork was scanned into [employer] and attached to record. cl 01:13 Consult PFS/PSA/Oral And Maxillofacial Pathologist ordered. cs11 01:13 Consult PFS/PSA/Oral And Maxillofacial Pathologist: Patient's case requires discussion with on-call 11 Psychiatrist ordered. 01:13 PSA/PFS to call Nursing Mmi Teacher, to [place] data [place] if patient cs11 involuntarily admitted or transferred for SI or HI ordered. 01:13 Confirm accurate psychiatric medication list and times of last dosage ordered. cs11 01:13 Detain Pt Until Medically/PFS Cleared ordered. cs11 01:15 Financial registration complete. hs2 01:15 Acetaminophen Level Ordered. EDMS 01:15 Basic Metabolic Profile Ordered. EDMS 01:15 Complete Blood Count Ordered. EDMS 01:15 Drug Eval Toxicology ED Only Ordered. EDMS 01:15 Ethyl Alcohol (ethanol) Ordered. EDMS 01:15 HCG,Serum Qualitative Ordered. EDMS 01:15 Liver Profile Ordered. EDMS 01:15 Salicylate Level Ordered. EDMS 01:15 Thyroid Stimulating Hormone Ordered. EDMS 01:18 [facility] Payment Agreement was scanned into [employer] and attached to record. hs2 02:01 Consult PFS/PSA/Oral And Maxillofacial Pathologist complete. cl 02:01 Consult PFS/PSA/Oral And Maxillofacial Pathologist: Patient's case requires discussion with on-call cl Psychiatrist complete. 02:01 PSA/PFS to call Nursing Mmi Teacher, to [place] if patient cl involuntarily admitted or transferred for SI or HI complete. 02:18 Admit to IM: ordered. EDMS 02:19 REGULAR DIET ordered. EDMS 02:29 MHE Legal paperwork was scanned into [employer] and attached to record. cl 02:30 Acetaminophen Level Reviewed. cs11 02:30 Basic Metabolic Profile Reviewed. cs11 02:30 Complete Blood Count Reviewed. cs11 02:30 Liver Profile Reviewed. cs11 02:30 Salicylate Level Reviewed. cs11 02:30 Drug Eval Toxicology ED Only Reviewed. cs11 02:30 Ethyl Alcohol (ethanol) Reviewed. cs11 02:30 HCG,Serum Qualitative Reviewed. cs11 02:30 Thyroid Stimulating Hormone Reviewed. cs11 02:31 BED REQUEST+ADM ordered. EDMS 09:25 T-Sheet-- Draft Copy was scanned into [employer] and attached to record. [facility] Signatures: Dispatcher [employer] EDMS Michael Underwood, PSA PSA cl Mark Rodriguez, DO DO cs11 Chris Lozano,RN RN Freda Holm LPN CLINIC CHARGE NURSE slShirley Robert, Reg Reg hs2 Zena Stout The chart was reviewed and I authenticate all verbal orders and agree with the evaluation and treatment provided.Attachments: 01:18 [facility] Payment Agreement hs2 09:25 T-Sheet-- Draft Copy [facility] Chart Complete MTDD
[2016-03-25 06:02] VITALS: BP 118/68
[2016-03-25] MEDS: IBUPROFEN 800 MG TAB PO PRN ×2 (06:53→23:07)
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
[2016-03-25] MEDS: OMEPRAZOLE 20 MG CAP PO SCH (08:02)
[2016-03-25] MEDS: FLUoxetine 20 MG CAP PO SCH (08:02)
[2016-03-25] MEDS: ADVAIR DISKUS 250/50 INH PWD INH SCH ×2 (08:02→20:08)
--- NOTE | 2016-03-25 08:39 | IPN ---
DATE: 03/24/2016 Temperature 96.0, pulse 97, respirations 18, blood pressure 136/76. CURRENT MEDICATION: - Prozac 10 mg every morning - trazodone 50 mg at bedtime as needed - Vistaril 25 mg at bedtime PSYCH HISTORY: The patient states that her mood is still depressed in the moderate range. She is tolerating the Prozac well. She is willing to increase the dosage. She is complaining about a laundry soap allergy. Her skin is very sensitive. She had an allergic reaction to the clothing provided here on the unit. She will be bringing in her own clothes from home with family members. The patient is getting involved in the milieu. She actually has a family member here on the unit. She has no objection to this and in fact wants to room with her, which appears to be a reasonable request. MENTAL STATUS EXAM: The patient is alert, oriented and cooperative. Patient is anxious and moderately depressed. She is not suicidal and not homicidal. No signs of psychosis. Insight and judgment are fair. IMPRESSION: Major depression, recurrent. PLAN: Increase Prozac to 20 mg every morning. Involve with milieu therapy.
[2016-03-25] MEDS: ACETAMINOPHEN TAB 650MG DOSE (2X325MG) PO PRN (13:56)
[2016-03-25 18:00] VITALS: BP 120/59
[2016-03-25] MEDS: FAMOTIDINE 20 MG TAB PO SCH (20:07)
[2016-03-25] MEDS: hydrOXYzine 25 MG TAB PO SCH (20:08)
[2016-03-25] MEDS: hydrOXYzine 50 MG TAB PO SCH (20:21)
--- NOTE | 2016-03-25 21:04 | IPN ---
DATE: 03/25/2016 SUBJECTIVE: Paula Obando is a 20-year-old woman who was admitted on 03/23/2016 due to reporting being depressed and attempting to take a handful of Flexeril tablets to try to kill herself. She reports an extensive psychiatric history and has previously been diagnosed with bipolar depressive and anxiety disorders. She reports having previously been treated with Wellbutrin, Xanax, Topamax, hydroxyzine and trazodone. She has medical history notable for asthma. She currently reports having problems staying around other people and requests for a private room. She also states she previously had benefited most from Xanax and expresses preference for the medication. CURRENT MEDICATIONS: - Prozac 20 mg by mouth every day - trazodone 50 mg at bedtime as needed for sleep - Vistaril 25 mg at bedtime also for insomnia. She reports that the trazodone causes her "fingers to keep snapping and shaking ", and as a result, she wants the trazodone discontinued. Of note she was started initially on 10 mg of Prozac, however the dose was increased. She reports that she likes the increased dose and she seems to be feeling better on the medication. OBSERVATION: VITAL SIGNS; Blood pressure 118/68, pulse 94, respirations 16, temperature 96.7. She is noted to be appropriately dressed and adequately groomed. She is calm and cooperative no abnormal movements are noted. Her speech is fluent and prosodic. Thought process is logical. There are no delusional themes or ideas of reference. She is not observed to be responding to internal stimuli, and denies any form of hallucinations. She describes her mood as less depressed. Affect is appropriate. She is alert and adequately oriented. Insight and judgment are not impaired. ASSESSMENT: She is currently tolerating present medications and does not appear to be an imminent risk of danger to self. She seems to be preoccupied with being prescribed Xanax and as such persistently reports symptoms including having difficulty staying with others and related anxiety symptoms, even though objective findings reveal no evidence of overt anxiety-related symptoms. PLAN: She will be continued on the current medications, however trazodone will be discontinued as the patient reports having side effects related to the medication. Vistaril will be increased from 25 mg to 50 mg orally at bedtime for ongoing sleep improvement. Participation in therapeutic programming will continue to be encouraged. MTDD
[2016-03-26] MEDS ORDERED: medroxyPROGESTERone ACET IM SUSP 150 MG/ML VIAL (J1050) IM ONE (06:00)
[2016-03-26 06:25] VITALS: BP 145/95
[2016-03-26] MEDS: OMEPRAZOLE 20 MG CAP PO SCH (08:05)
[2016-03-26] MEDS: ADVAIR DISKUS 250/50 INH PWD INH SCH ×2 (08:05→20:21)
[2016-03-26] MEDS: FLUoxetine 20 MG CAP PO SCH (08:05)
[2016-03-26] MEDS: IBUPROFEN 800 MG TAB PO PRN (16:44)
[2016-03-26 18:00] VITALS: BP 132/79
[2016-03-26] MEDS: hydrOXYzine 50 MG TAB PO SCH (20:21)
[2016-03-26] MEDS: ACETAMINOPHEN TAB 650MG DOSE (2X325MG) PO PRN (20:21)
[2016-03-26] MEDS: FAMOTIDINE 20 MG TAB PO SCH (20:21)
--- NOTE | 2016-03-26 23:16 | IPN ---
DATE: 03/26/2016 SUBJECTIVE: The patient is seen today and treatment reviewed. This is her fourth day of inpatient admission and she reports that she is doing well and is ready for discharge. She says that she already has plans for followup as an outpatient. No new complaint presented. She describes her mood as improved and says she no longer is experiencing severe anxiety or thoughts of harming herself. CURRENT MEDICATIONS: - Prozac 20 mg orally by mouth daily - Vistaril 50 mg at bedtime for insomnia OBSERVATION: Vital signs: Blood pressure 145/95, pulse 84, respirations 16, temperature 99.3. She is noted to interact normally with her peers. Her grooming and hygiene are fair. She is appropriately dressed in her street clothing. Mood is described as okay. Affect is pleasant. No psychotic features are evident. She denies suicidal thoughts, plan or intent as well as homicidal ideation. No medication related adverse events noted. ASSESSMENT: Paula has demonstrated marked improvement and presently does not appear to be a danger to self or to others. PLAN: She will be reassessed in the next 24 hours, and if stable, will be scheduled for discharge with appropriate followup plan. DANIELLA
[2016-03-27 06:29] VITALS: BP 155/95
[2016-03-27] MEDS: ADVAIR DISKUS 250/50 INH PWD INH SCH (08:02)
[2016-03-27] MEDS: FLUoxetine 20 MG CAP PO SCH (08:02)
[2016-03-27] MEDS: OMEPRAZOLE 20 MG CAP PO SCH (08:02)
[2016-03-27] MEDS: ACETAMINOPHEN TAB 650MG DOSE (2X325MG) PO PRN (08:02)
[2016-03-27] MEDS ORDERED: HYDRO50TAB PO (11:25)
[2016-03-27] MEDS ORDERED: FLUO20CA9 PO (11:25)
[2016-03-27] MEDS ORDERED: PEPC1TAB4 PO (11:38)
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
== END 2016-03-27 14:10 | disposition home or self-care (01) | DRG 751 ==
LOC: M ED 00:43 → M PSY 02:49
PROVIDERS: ADMIT Psychiatry & Neurology Psychiatry; ATTEND Psychiatry & Neurology Psychiatry
DX: F33.9 Major depressive disorder, recurrent, unspecified (principal); R45.851 Suicidal ideations; H54.42 Blindness, left eye, normal vision right eye; F40.01 Agoraphobia with panic disorder; F15.980 Other stimulant use, unspecified with stimulant-induced anxiety disorder; J45.909 Unspecified asthma, uncomplicated; K21.9 Gastro-esophageal reflux disease without esophagitis; F17.210 Nicotine dependence, cigarettes, uncomplicated; Z91.040 Latex allergy status; Z91.018 Allergy to other foods; Z81.8 Family history of other mental and behavioral disorders; Z79.899 Other long term (current) drug therapy

== ENCOUNTER 2017-05-13 17:06 | Emergency (ER) | payer MEDICAID, SELFPAY ==
[2017-05-13] MEDS: ACETAMINOPHEN 325 MG TAB PO (17:33)
[2017-05-13] MEDS: PHENAZOPYRIDINE 100 MG TAB PO (17:33)
[2017-05-13 17:50] LABS: KETONE, URINE AUTO RFX NEGATIVE (NEGATIVE); NITRITE, URINE AUTO RFX NEGATIVE (NEGATIVE); RBC, URINE AUTO RFX 1 /HPF (0-3); SPECIFIC GRAVITY UR AUTO RFX 1.008 (1.002-1.035); SQUAM EPITHELIAL CELL UR AURFX 6 /HPF (0-6); WBC, URINE AUTO RFX 4 /HPF (0-3)
[2017-05-13 17:51] LABS: LEUKOCYTE ESTERASE UR AUTO RFX TRACE (NEGATIVE)
[2017-05-13] MEDS: CIPROFLOXACIN 500 MG TAB PO (18:01)
== END 2017-05-13 18:25 | disposition home or self-care (01) ==
LOC: M ED 17:06
DX: N30.00 Acute cystitis without hematuria (principal); K21.9 Gastro-esophageal reflux disease without esophagitis; F17.200 Nicotine dependence, unspecified, uncomplicated; Z91.040 Latex allergy status; Z91.018 Allergy to other foods
CPT/HCPCS: 81001

== ENCOUNTER → 2017-07-17 | Outpatient (CLI) | payer OTHER ==
[2017-07-17 12:35] LABS: FREE T4 0.99 NG/DL (0.76-1.46)
[2017-07-17 12:38] LABS: PROLACTIN 7.2 NG/ML
[2017-07-17 12:39] LABS: FOLLICLE STIMULATING HORMONE 3.7 mIU/mL; LUTEINIZING HORMONE 10.8 mIU/mL
[2017-07-20 08:32] LABS: PROGESTERONE 4.5 NG/ML
== END ==
LOC: M LAB 11:18
DX: N93.8 Other specified abnormal uterine and vaginal bleeding (principal)
CPT/HCPCS: 83001

== ENCOUNTER 2017-11-10 19:04 | Emergency (ER) | payer OTHER ==
[2017-11-10 19:29] LABS: CONTROL LINE UCG INT CTR LINE PRESENT; URINE PREG TEST NEGATIVE (NEGATIVE)
[2017-11-10 19:33] LABS: KETONE, URINE AUTO RFX NEGATIVE (NEGATIVE); LEUKOCYTE ESTERASE UR AUTO RFX NEGATIVE (NEGATIVE); MUCUS, URINE RFX SMALL (NEGATIVE); NITRITE, URINE AUTO RFX NEGATIVE (NEGATIVE); RBC, URINE AUTO RFX 3 /HPF (0-3); SPECIFIC GRAVITY UR AUTO RFX 1.018 (1.002-1.035); SQUAM EPITHELIAL CELL UR AURFX 10 /HPF (0-6); WBC, URINE AUTO RFX 2 /HPF (0-3)
[2017-11-10 19:54] LABS: BASO # 0.1 10^3/uL (0.0-0.2); BASO % 0.5 % (0.0-1.0); EOS # 0.2 10^3/uL (0.0-0.50); EOS % 1.8 % (0.0-3.0); HEMATOCRIT 42.1 % (36.0-47.0); HEMOGLOBIN 14.2 g/dl (12.0-15.5); IMMATURE GRANULOCYTE % 0.4 % (0-3.0); LYMPH # 2.9 10^3/uL (1.5-6.5); LYMPH % 25.2 % (24.0-44.0); MEAN CORPUSCULAR HGB CONC 33.7 g/dl (32.0-36.5); MEAN CORPUSCULAR VOLUME 85.9 fl (80.0-96.0); MONO # 0.9 10^3/uL (0.0-0.8); MONO % 7.6 % (0.0-5.0); NEUTROPHILS # 7.3 10^3/uL (1.8-7.7); NEUTROPHILS % 64.5 % (36.0-66.0); PLATELET COUNT, AUTOMATED 274 10^3/uL (150-450); RED CELL DISTRIBUTION WIDTH 13.2 % (11.5-14.5); WHITE BLOOD COUNT 11.4 10^3/uL (4.0-10.0)
[2017-11-10] MEDS: ONDANSETRON 4MG/2ML VIAL (J2405) IV (19:54)
[2017-11-10] MEDS: MORPHINE 2 MG/ML 1ML SYRINGE (J2270) IV (19:54)
[2017-11-10] MEDS: NS 1,000 ML IV (19:55)
[2017-11-10 20:18] LABS: ALBUMIN 3.5 GM/DL (3.2-5.2); ALBUMIN/GLOBULIN RATIO 0.83 (1.00-1.93); ALKALINE PHOSPHATASE 130 U/L (45-117); ALT/SGPT 19 U/L (12-78); AMYLASE 33 U/L (25-115); ANION GAP 10 MEQ/L (8-16); AST/SGOT 14 U/L (7-37); BILIRUBIN,DIRECT 0.1 MG/DL (0.0-0.2); BILIRUBIN,TOTAL 0.6 MG/DL (0.2-1.0); BLOOD UREA NITROGEN 7 MG/DL (7-18); CALCIUM LEVEL 8.6 MG/DL (8.5-10.1); CARBON DIOXIDE LEVEL 24 MEQ/L (21-32); CHLORIDE LEVEL 107 MEQ/L (98-107); CREATININE FOR GFR 0.62 MG/DL (0.55-1.30); GLOMERULAR FILTRATION RATE > 60.0 (>60); GLUCOSE, FASTING 82 MG/DL (70-100); LIPASE 80 U/L (73-393); POTASSIUM SERUM 3.7 MEQ/L (3.5-5.1); SODIUM LEVEL 141 MEQ/L (136-145); TOTAL PROTEIN 7.7 GM/DL (6.4-8.2)
== END 2017-11-10 23:10 | disposition home or self-care (01) ==
LOC: M ED 19:04
DX: N83.202 Unspecified ovarian cyst, left side (principal); R11.0 Nausea; K21.9 Gastro-esophageal reflux disease without esophagitis; J45.909 Unspecified asthma, uncomplicated; F41.9 Anxiety disorder, unspecified; F31.9 Bipolar disorder, unspecified; F17.200 Nicotine dependence, unspecified, uncomplicated; Z91.018 Allergy to other foods; Z91.040 Latex allergy status
CPT/HCPCS: J2405

== ENCOUNTER 2017-11-17 09:29 | Emergency (ER) | payer OTHER ==
[2017-11-18 14:18] LABS: Lyme Disease IgG/IgM Antibodie <0.91 ISR (0.00-0.90); Lyme Disease IgM Ab Quantitati <0.80 index (0.00-0.79)
== END 2017-11-17 10:16 | disposition home or self-care (01) ==
LOC: M ED 09:29
DX: S80.862A Insect bite (nonvenomous), left lower leg, initial encounter (principal); W57.XXXA Bitten or stung by nonvenomous insect and other nonvenomous arthropods, initial encounter; Y92.89 Other specified places as the place of occurrence of the external cause; F31.9 Bipolar disorder, unspecified; K21.9 Gastro-esophageal reflux disease without esophagitis; Z91.018 Allergy to other foods; Z91.040 Latex allergy status; F17.210 Nicotine dependence, cigarettes, uncomplicated
CPT/HCPCS: 86617

== ENCOUNTER 2017-11-19 18:05 | Emergency (ER) | payer OTHER ==
[2017-11-19] MEDS: BACTRIM 160MG/800MG DS TAB PO (20:35)
== END 2017-11-19 21:14 | disposition home or self-care (01) ==
LOC: M ED 18:05
DX: L03.116 Cellulitis of left lower limb (principal); W57.XXXA Bitten or stung by nonvenomous insect and other nonvenomous arthropods, initial encounter; Y92.59 Other trade areas as the place of occurrence of the external cause; J45.909 Unspecified asthma, uncomplicated; K21.9 Gastro-esophageal reflux disease without esophagitis; N83.209 Unspecified ovarian cyst, unspecified side; F31.9 Bipolar disorder, unspecified; Z91.018 Allergy to other foods; Z91.040 Latex allergy status
CPT/HCPCS: 87205

== ENCOUNTER 2018-02-05 19:00 | Emergency (ER) | payer OTHER | END 2018-02-05 19:42 | disposition home or self-care (01) | LOC: M ED 19:00 | DX: O99.89 Other specified diseases and conditions complicating pregnancy, childbirth and the puerperium (principal); L42 Pityriasis rosea; F31.9 Bipolar disorder, unspecified; Z91.018 Allergy to other foods; Z91.040 Latex allergy status; O99.331 Smoking (tobacco) complicating pregnancy, first trimester; F17.210 Nicotine dependence, cigarettes, uncomplicated; Z3A.00 Weeks of gestation of pregnancy not specified | CPT/HCPCS: 99282 ==

== ENCOUNTER → 2018-02-26 | Outpatient (REF) | payer OTHER ==
[2018-02-26 13:34] LABS: HEMATOCRIT 38.5 % (36.0-47.0); HEMOGLOBIN 12.9 g/dl (12.0-15.5); MEAN CORPUSCULAR HEMOGLOBIN 29.5 pg (27.0-33.0); MEAN CORPUSCULAR HGB CONC 33.5 g/dl (32.0-36.5); MEAN CORPUSCULAR VOLUME 87.9 fl (80.0-96.0); PLATELET COUNT, AUTOMATED 251 10^3/uL (150-450); RED BLOOD COUNT 4.38 10^6/uL (4.00-5.40); RED CELL DISTRIBUTION WIDTH 13.6 % (11.5-14.5); WHITE BLOOD COUNT 8.7 10^3/uL (4.0-10.0)
[2018-02-26 14:19] LABS: ESTIMATED AVERAGE GLUCOSE 94 MG/DL (60-110); HCG, SERUM QUANTITATIVE 89887 MIU/ML; HEMOGLOBIN A1c 4.9 %
[2018-02-26 14:20] LABS: RUBELLA IgG QUALITATIVE IMMUNE (IMMUNE)
[2018-02-26 14:21] LABS: HBsAg Prenatal NEGATIVE (NEGATIVE)
[2018-02-26 14:49] LABS: HEPATITIS C VIRUS ABY INDEX 0.1 INDEX (<0.8)
[2018-02-26 14:49] LABS: HIV 1&2 SCREEN CENTAUR NEGATIVE (NEGATIVE)
== END ==
LOC: M LAB REF 13:04
DX: O36.80X0 Pregnancy with inconclusive fetal viability, not applicable or unspecified (principal); Z32.01 Encounter for pregnancy test, result positive

== ENCOUNTER 2018-03-19 13:59 | Emergency (ER) | payer OTHER ==
[~2018-03-19] VITALS: Ht 162.6 cm; Wt 106.8 kg
[~2018-03-19 13:59] MED LIST: ADV250INH INH; ALBU17IN INH; BACIOIN23 OP; BACT800T5 PO; CIPR-249 PO; CLAR1TAB2 PO; FLUO20CA19 PO; HYDRO50TAB PO; OMEP40CA2 PO; PEPC1TAB5 PO; PYRI1TAB5 PO; TRAZ-160 PO
[2018-03-19] MEDS ORDERED: PRENCHW PO (14:07)
[2018-03-19] MEDS ORDERED: diphenhydrAMINE INJ 50MG/ML VIAL (J1200) IV STA (16:08)
[2018-03-19] MEDS ORDERED: NS 1,000 ML IV ONE (16:15)
[2018-03-19] MEDS ORDERED: METOCLOPRAMIDE INJ 10MG/2ML VIAL (J2765) IV ONE (16:15)
[2018-03-19 17:18] VITALS: BP 124/81
== END 2018-03-19 17:19 | disposition home or self-care (01) ==
LOC: M ED 13:59
DX: R51 Headache (principal); J45.909 Unspecified asthma, uncomplicated; Z91.018 Allergy to other foods; Z91.040 Latex allergy status; Z87.891 Personal history of nicotine dependence
CPT/HCPCS: 96374; 96375; 99284; J1200; J2765

== ENCOUNTER → 2018-07-20 | Outpatient (CLI) | payer OTHER ==
[~2018-07-20] MED LIST changes: +PRENCHW PO
[2018-07-20 13:14] LABS: HEMATOCRIT 31.8 % (36.0-47.0); HEMOGLOBIN 10.6 g/dl (12.0-15.5); MEAN CORPUSCULAR HEMOGLOBIN 30.3 pg (27.0-33.0); MEAN CORPUSCULAR HGB CONC 33.3 g/dl (32.0-36.5); MEAN CORPUSCULAR VOLUME 90.9 fl (80.0-96.0); PLATELET COUNT, AUTOMATED 251 10^3/uL (150-450); WHITE BLOOD COUNT 12.6 10^3/uL (4.0-10.0)
== END ==
LOC: M LAB 11:07
PROVIDERS: ATTEND Obstetrics & Gynecology
DX: Z34.82 Encounter for supervision of other normal pregnancy, second trimester (principal); Z3A.00 Weeks of gestation of pregnancy not specified

== ENCOUNTER → 2018-09-16 | Outpatient (REF) | payer OTHER ==
[~2018-09-16] MED LIST changes: -TRAZ-160 PO; +TRAZ-252 PO
== END ==
LOC: M LAB REF 12:39
PROVIDERS: ATTEND Obstetrics & Gynecology
DX: Z34.83 Encounter for supervision of other normal pregnancy, third trimester (principal); Z3A.00 Weeks of gestation of pregnancy not specified

== ENCOUNTER 2018-10-07 09:37 | Inpatient (IN) | payer OTHER ==
[~2018-10-07] VITALS: Ht 167.6 cm; Wt 107.2 kg
[2018-10-07] VITALS (11 sets, daily range): BP systolic 110–177; BP diastolic 67–98
[2018-10-07] MEDS ORDERED: OXYTOCIN 30 UNITS IN 0.9% NaCl 500ML IV BAG (J2590) As Ordered ONE (09:38)
[2018-10-07] MEDS ORDERED: LR 1,000 ML IV SCH (10:00)
[2018-10-07] MEDS ORDERED: LACTATED RINGER'S 1000 ML IV ONE (10:00)
[2018-10-07] MEDS ORDERED: OXYTOCIN DRIP 30 UNITS in APPROPRIATE DILUENT 1 EA IV SCH (10:22)
[2018-10-07] MEDS ORDERED: ACETAMINOPHEN 500 MG TAB PO PRN (10:30)
[2018-10-07] MEDS ORDERED: METHYLERGONOVINE MALEATE 0.2 MG TAB PO PRN (10:30)
[2018-10-07] MEDS ORDERED: RHOGAM 300 MCG (1500 IU) INJ (J2790) IM SCH (10:30)
[2018-10-07] MEDS ORDERED: IBUPROFEN 600 MG TAB PO PRN (10:30)
[2018-10-07] MEDS ORDERED: MEASLES,MUMPS,RUBELLA VACCINE INJ (MMR-II) (90707) SC SCH (10:30)
[2018-10-07] MEDS ORDERED: ACETAMINOPHEN TAB 650MG DOSE (2X325MG) PO PRN (10:30)
[2018-10-07] MEDS ORDERED: DOCUSATE SODIUM 100 MG CAP PO PRN (10:30)
[2018-10-07 10:37] LABS: CORD GAS ABE A -3.3; CORD GAS HCO3 A 23.6 MEQ/L; CORD GAS O2 SAT A 37.6 %; CORD GAS PH A 7.301 UNITS; CORD GAS PO2 A 19.1 mmHg; CORD GAS SBC A 20.3 MEQ/L; CORD GAS TCO2 A 25.1 MEQ/L
[2018-10-07 10:39] LABS: CORD GAS ABE V -4.4; CORD GAS O2 SAT V 65.8 %; CORD GAS PCO2 V 35.6 mmHg; CORD GAS PH V 7.368 UNITS; CORD GAS PO2 V 27.8 mmHg; CORD GAS TCO2 V 21.1 MEQ/L
[2018-10-07 10:58] LABS: HEMATOCRIT 37.8 % (36.0-47.0); HEMOGLOBIN 12.7 g/dl (12.0-15.5); MEAN CORPUSCULAR HEMOGLOBIN 29.5 pg (27.0-33.0); MEAN CORPUSCULAR HGB CONC 33.6 g/dl (32.0-36.5); MEAN CORPUSCULAR VOLUME 87.9 fl (80.0-96.0); PLATELET COUNT, AUTOMATED 228 10^3/uL (150-450); WHITE BLOOD COUNT 19.7 10^3/uL (4.0-10.0)
[2018-10-07] MEDS ORDERED: SLF 3 ML SYR IV PRN (13:30)
[2018-10-07] MEDS: IBUPROFEN 800 MG TAB PO PRN (13:48)
[2018-10-07] MEDS: SLF 3 ML SYR IV SCH ×2 (14:00→22:00)
[2018-10-07] MEDS ORDERED: APAP325T4 PO (14:21)
[2018-10-07] MEDS ORDERED: CALCIUM CARBONATE 500 MG CHEW U/D PO PRN (17:45)
[2018-10-08] MEDS: IBUPROFEN 800 MG TAB PO PRN ×2 (00:23→13:08)
[2018-10-08 06:00] VITALS: BP 131/72
[2018-10-08] MEDS: SLF 3 ML SYR IV SCH (06:29)
[2018-10-08] MEDS: PRENATAL VITAMINS CHEWABLE TABLET PO SCH (08:16)
[2018-10-08] MEDS: DIBUCAINE 1% OINTMENT 30GM TOP PRN (13:07)
[2018-10-08 18:00] VITALS: BP 110/69
[2018-10-09 06:34] VITALS: BP 120/64
[2018-10-09] MEDS: PRENATAL VITAMINS CHEWABLE TABLET PO SCH (08:17)
[2018-10-09] MEDS: DIBUCAINE 1% OINTMENT 30GM TOP PRN (08:17)
[2018-10-09] MEDS: IBUPROFEN 800 MG TAB PO PRN (12:55)
== END 2018-10-09 13:55 | disposition home or self-care (01) | DRG 560 ==
LOC: M LDI 09:37 → M OBS 13:12
PROVIDERS: ADMIT Obstetrics & Gynecology; ATTEND Obstetrics & Gynecology
PROC: 10E0XZZ Delivery of Products of Conception, External Approach (ICD-10-PCS; principal; 2018-10-07)
PROC: 0HQ9XZZ Repair Perineum Skin, External Approach (ICD-10-PCS; 2018-10-07)
DX: O70.0 First degree perineal laceration during delivery (principal); Z3A.39 39 weeks gestation of pregnancy; Z37.0 Single live birth